=== PATIENT | male | born 1990 | race Caucasian/White ===

== ENCOUNTER 2018-12-02 20:06 | Emergency (ER) | payer OTHER ==
[~2018-12-02] VITALS: Ht 180.3 cm; Wt 106.6 kg
[2018-12-02] MEDS ORDERED: NOHOMEMEDICATIONS (20:21)
[2018-12-02 21:02] LABS: ABSOLUTE BASOPHILS 0.1 thou/uL (0.0-0.2); ABSOLUTE EOSINOPHILS 0.4 thou/uL (0.0-0.7); ABSOLUTE LYMPHOCYTES 2.5 thou/uL (0.8-5.3); ABSOLUTE MONOCYTES 0.5 thou/uL (0.0-1.2); ABSOLUTE NEUTROPHILS 4.2 thou/uL (1.6-8.1); BASOPHILS 1.3 %; EOSINOPHILS 5.3 %; HEMATOCRIT 41.7 % (42.0-52.0); HEMOGLOBIN 14.4 gm/dL (14.0-18.0); LYMPHOCYTES 32.2 %; MCH 30.2 pg (26.0-34.0); MCHC 34.5 g/dL (28.0-37.0); MCV 87.4 fL (80.0-100.0); MONOCYTES 6.5 %; MPV 8.2 fl. (7.2-11.1); NUCLEATED RBCS 0 /100WBC; PLATELET COUNT* 269 thou/uL (150-400); POLYS 54.7 %; RBC 4.77 mil/uL (4.50-6.00); RDW-CV 13.2 % (10.5-14.5); WBC 7.8 thou/uL (4.0-11.0)
[2018-12-02 21:09] LABS: ANION GAP 8 mmol/L (7-16); BUN 14 mg/dL (7-18); CALCIUM 8.8 mg/dL (8.5-10.1); CHLORIDE 106 mmol/L (98-107); CO2 29 mmol/L (21-32); CREATININE 0.9 mg/dL (0.6-1.3); GLUCOSE 99 mg/dL (70-99); POTASSIUM 3.8 mmol/L (3.5-5.1); SODIUM 143 mmol/L (136-145)
[2018-12-02 21:18] LABS: ALKALINE PHOSPHATASE 65 U/L (46-116); SGOT 11 U/L (15-37); SGPT 25 U/L (30-65); TOTAL BILIRUBIN 0.4 mg/dL (<0.1-1.0); TOTAL PROTEIN 7.5 g/dL (6.4-8.2); TROPONIN-I LEVEL <0.06 ng/mL (<0.06)
[2018-12-02] MEDS ORDERED: NORCO 5-325 TA1 EAC1 PO (22:20)
[2018-12-02] MEDS ORDERED: IBUPROFEN 800800 M1 PO (22:20)
[2018-12-02] MEDS ORDERED: ZANAFLEX4 MG PO (22:20)
[2018-12-02 22:33] VITALS: BP 148/74
--- NOTE | 2018-12-03 17:57 | EKG ---
[place] [address] ELECTROCARDIOGRAM REPORT Name: SUN NAYLOR Room: [facility]#: [id number] Admission: 12/02/18 Attend Phys: Discharge: 12/02/18 Date of : 88 Report #: [id number] THIS REPORT FOR: //name// [facility] ED Test Date: 2018-12-02 Test Time: 20:19:47 Pat Name: SUN NAYLOR Department: Room: Gender: M Liability Claims Examiner: NELIA : 1990 Requested By: Aminta Casas Order Number: [id number] MD: Josef Kay Measurements Intervals [place] Rate: 75 P: 28 CA: 168 QRS: 48 QRSD: 101 T: 31 QT: 368 QTc: 411 Interpretive Statements Sinus rhythm No previous ECG available for comparison Electronically Signed On 12-03-2018 17:57:12 CDT by Josef Kay [email or web address] <ELECTRONICALLY SIGNED> By: Josef Kay MD, [facility] 12/03/18 1757 2019 18 Josef Kay MD, FACC /EPI
== END 2018-12-02 22:33 | disposition home or self-care (01) ==
LOC: M.ERS 20:06
PROVIDERS: Nurse Practitioner Family
DX: S16.1XXA Strain of muscle, fascia and tendon at neck level, initial encounter (principal); M25.512 Pain in left shoulder; X50.1XXA Overexertion from prolonged static or awkward postures, initial encounter; Y92.89 Other specified places as the place of occurrence of the external cause; Y93.89 Activity, other specified; Y99.8 Other external cause status

== ENCOUNTER 2019-03-11 19:22 | Emergency (ER) | payer OTHER ==
[~2019-03-11] VITALS: Ht 180.3 cm; Wt 108.0 kg
[~2019-03-11 19:22] MED LIST: IBUPROFEN 800800 M1 PO; NOHOMEMEDICATIONS; NORCO 5-325 TA1 EAC1 PO; ZANAFLEX4 MG PO
[2019-03-11 19:35] VITALS: BP 137/55
[2019-03-11] MEDS ORDERED: NAPROSYN500 MG PO (20:33)
[2019-03-11] MEDS ORDERED: ZANAFLEX4 MG PO (20:33)
== END 2019-03-11 20:52 | disposition home or self-care (01) ==
LOC: M.ERS 19:22
DX: S16.1XXA Strain of muscle, fascia and tendon at neck level, initial encounter (principal); M25.512 Pain in left shoulder; Z98.890 Other specified postprocedural states; V89.2XXA Person injured in unspecified motor-vehicle accident, traffic, initial encounter; Y93.89 Activity, other specified; Y92.89 Other specified places as the place of occurrence of the external cause; Y99.8 Other external cause status